=== PATIENT | female | born 1990 | race Caucasian/White ===

== ENCOUNTER 2022-05-18 07:20 | Inpatient (IN) | payer OTHER ==
[2022-05-18 08:29] VITALS: BMI 37.5
[2022-05-18] MEDS ORDERED: OXYTOCIN 30 UNITS in 0.9% NS 30 UNIT/500 ML INFUS.BAG IVPB ONE (09:00)
[2022-05-18] MEDS ORDERED: ELECTROLYTE-148 SOLN 1,000 ML IV SCH (09:15)
[2022-05-18] MEDS ORDERED: OXYTOCIN 30 UNITS in 0.9% NS 30 UNIT/500 ML INFUS.BAG IVPB SCH (09:15)
[2022-05-18 09:38] LABS: BASO % 0.3 % (0-2.0); HEMATOCRIT 30.7 % (32.4-45.2); HEMOGLOBIN 10.3 GM/dL (10.7-15.3); LYMPH % 13.9 % (8-40); MCH 28.3 pg (25.7-33.7); MCHC 33.5 g/dl (32.0-36.0); MEAN CELL VOLUME 84.3 fl (80-96); MEAN PLT VOLUME 7.6 fl (7.5-11.1); MONO % 8.6 % (3.8-10.2); NEUT % 76.2 % (42.8-82.8); PLATELET COUNT 228 10^3/uL (134-434); RBC 3.64 M/mm3 (3.60-5.2); WHITE BLOOD COUNT 8.8 K/mm3 (4.0-10.0)
[2022-05-18 09:45] LABS: INR 0.96 (0.83-1.09); PROTHROMBIN TIME (PATIENT) 11.1 SEC (9.7-13.0)
[2022-05-18 09:48] LABS: ACTIVATED PTT 27.4 SECONDS (25.2-36.5)
[2022-05-18 10:01] LABS: BLOOD UREA NITROGEN 13.1 mg/dL (7-18); CALCIUM 8.5 mg/dL (8.5-10.1)
[2022-05-18 10:05] LABS: CREATININE 0.5 mg/dL (0.55-1.3)
[2022-05-18 11:57] LABS: HIV INTERPRETATION NEGATIVE (NEGATIVE)
[2022-05-18] MEDS ORDERED: FENTANYL/BUPIVACAINE/NS/PF - PCEA - 50 ML DISP.SYRIN EP ONE (15:36)
[2022-05-18] MEDS ORDERED: NALOXONE HCL 0.4 MG/ML VIAL IVPUSH PRN (15:37)
[2022-05-18] MEDS ORDERED: FENTANYL CITRATE/PF 50 MCG/ML VIAL ONE (15:42)
[2022-05-18] MEDS ORDERED: FENTANYL/BUPIVACAINE/NS/PF - PCEA - 50 ML DISP.SYRIN EP SCH (15:45)
[2022-05-18] MEDS ORDERED: LIDOCAINE HCL 1% PRESERVATIVE FREE - 30ML VIAL ONE (15:52)
[2022-05-18] MEDS ORDERED: OXYTOCIN 20 UNITS in 0.9% NS 20 UNIT/1,000 ML INFUS.BAG IV ONE (15:52)
[2022-05-18] MEDS ORDERED: ACETAMINOPHEN 325 MG TABLET (FP) PO PRN (17:04)
[2022-05-18] MEDS ORDERED: BENZOCAINE 20% 57 GM BOTTLE TP PRN (17:04)
[2022-05-18] MEDS ORDERED: BISACODYL 10 MG SUPP.RECT RC PRN (17:04)
[2022-05-18] MEDS ORDERED: METHYLERGONOVINE MALEATE 0.2 MG/1 ML AMP IM PRN (17:04)
[2022-05-18] MEDS ORDERED: oxyCODONE HCL 5 MG TABLET PO PRN (17:04)
[2022-05-18] MEDS ORDERED: WITCH HAZEL 50% (TUCKS) 40 PAD/JAR PAD TP PRN (17:04)
[2022-05-18] MEDS ORDERED: BENZOCAINE 28 GM HEMORRHOIDAL OINTMENT TP PRN (17:04)
[2022-05-18] MEDS ORDERED: OXYTOCIN 20 UNITS in 0.9% NS 20 UNIT/1,000 ML INFUS.BAG IV SCH (17:15)
[2022-05-18] MEDS ORDERED: METHYLERGONOVINE MALEATE 0.2 MG TABLET (FP) ONE (18:45)
[2022-05-18] MEDS: METHYLERGONOVINE MALEATE 0.2 MG TABLET (FP) PO PRN (18:46)
[2022-05-18] MEDS: IBUPROFEN 600 MG TABLET (FP) PO PRN (20:27)
[2022-05-19] MEDS: IBUPROFEN 600 MG TABLET (FP) PO PRN (02:15)
[2022-05-19] MEDS: METHYLERGONOVINE MALEATE 0.2 MG TABLET (FP) PO PRN (02:15)
[2022-05-19 07:35] LABS: BASO % 0.3 % (0-2.0); EOS % 0.4 % (0-4.5); HEMATOCRIT 33.5 % (32.4-45.2); HEMOGLOBIN 11.3 GM/dL (10.7-15.3); LYMPH % 11.9 % (8-40); MCH 28.1 pg (25.7-33.7); MCHC 33.6 g/dl (32.0-36.0); MEAN CELL VOLUME 83.7 fl (80-96); MEAN PLT VOLUME 7.3 fl (7.5-11.1); MONO % 6.4 % (3.8-10.2); PLATELET COUNT 196 10^3/uL (134-434); RBC 4.01 M/mm3 (3.60-5.2); RDW 18.2 % (11.6-15.6); WHITE BLOOD COUNT 10.8 K/mm3 (4.0-10.0)
[2022-05-19] MEDS ORDERED: SENNOSIDES/DOCUSATE COMBO (SENNA PLUS) TABLET (UD) PO PRN (22:00)
[2022-05-20] MEDS: IBUPROFEN 600 MG TABLET (FP) PO PRN (08:57)
[2022-05-20 11:17] VITALS: BP 126/77; PULSE 88; RESP 16; TEMP 97.8
== END 2022-05-20 12:30 | disposition home or self-care (01) | DRG 560 ==
LOC: JLDR 07:20 → J3W 20:00
PROVIDERS: ADMIT Specialist; ATTEND Specialist
PROC: 10E0XZZ Delivery of Products of Conception, External Approach (ICD-10-PCS; principal; 2022-05-18)
DX: O36.63X0 Maternal care for excessive fetal growth, third trimester, not applicable or unspecified (principal); Z3A.38 38 weeks gestation of pregnancy; Z37.0 Single live birth
CPT/HCPCS: 36415; 59409; 80048; 85025; 85610; 85730; 86780; 86850; 86900; 86901; 87389; C9803-CS; U0003; U0005